=== PATIENT | male | born 1940 | race Caucasian/White ===

== ENCOUNTER 2016-04-01 14:21 | Emergency (ER) | payer MEDICARE ==
[2016-04-01 15:05] LABS: #Basophils 0.1 thou/uL (0.0-0.2); #Eosinphils 0.3 thou/uL (0.0-0.7); #Lymphocytes 1.3 thou/uL (1.20-3.40); #Monocytes 0.5 thou/uL (0.11-0.59); #Neutrophils 4.8 thou/uL (1.40-6.50); %Basophils 1.1 % (0.0-1.0); %Eosinophils 4.3 % (0.0-10.0); %Monocytes 7.1 % (0.0-10.0); Hematocrit 51.6 % (42.0-52.0); Mean Platelet Volume 6.5 fL (7.4-10.4); White Blood Cell (WBC) Count 6.9 thou/uL (4.8-10.8)
[2016-04-01] MEDS ORDERED: Diazepam 10 MG/2 ML SYRINGE ONE (15:17)
[2016-04-01 15:18] LABS: ALT (SGPT) 24 U/L (0-55); AST (SGOT) 18 U/L (5-34); Alkaline Phosphatase 90 U/L (40-150); Anion Gap 13 mmol/L (10-20); BUN (Urea Nitrogen) 14 mg/dL (8.4-25.7); Bilirubin, Total 0.5 mg/dL (0.2-1.2); Calc. Creatinine Clearance 0 mL/min (70-130); Calcium 8.8 mg/dL (7.8-10.44); Carbon Dioxide 24 mmol/L (23-31); Chloride 108 mmol/L (98-107); Estimated GFR-MDRD 85; Globulin 2.8 g/dL (2.4-3.5); Lipase 11 U/L (8-78); Protein, Total 6.5 g/dL (5.8-8.1)
[2016-04-01 15:21] LABS: Troponin I Less than 0.010 ng/mL (< 0.028)
--- NOTE | 2016-04-01 16:17 | ERRECORD ---
[facility] EMERGENCY RECORD PAST MEDICAL HISTORY (15:15 KMOR) MEDICAL HISTORY: No past medical history, Flu vaccine not up to date, Tetanus not up to date, Pneumococcal vaccine not up to date. MALE SURGICAL HISTORY: Surgical history of cholecystectomy. PSYCHIATRIC HISTORY: No previous psychiatric history. SOCIAL HISTORY: Patient denies alcohol use, Patient currently uses tobacco. KNOWN ALLERGIES No Known Drug Allergies CURRENT MEDICATIONS (14:53 KMOR) None VITAL SIGNS VITAL SIGNS: BP: 153/90, Pulse: 67, Resp: 17, Temp: 97.9 (Oral), Pain: 0, O2 sat: 94 on Room Air, Time: 04/01/2016 14:54. (14:54 KMOR) BP: 147/69, Pulse: 60, Resp: 14, Pain: 0, O2 sat: 94 on Room Air, Time: 04/01/2016 15:41. (15:41 KMOR) EKG INTERPRETATION (15:44 MBRI) 12 LEAD EKG INTERPRETATION: 12 lead EKG interpreted by Emergency Department Physician at time of study, 12 lead EKG shows normal sinus rhythm, Rate (beats per minute): 66, with no ectopics, Conduction with, first degree AV block, ST segments normal, T waves normal, [place], left, Other findings include:, age undetermined ant infarct. RADIOLOGYINTERPRETATION (15:19 MBRI) HEAD: Head CT negative, without contrast, no bleed, no mass, no acute ischemic stroke, no acute changes. PARTNER: Preliminary review of CT scans by, Radiologist. MEDICATION ADMINISTRATION SUMMARY Drug Name: *Valium injection, Dose Ordered: 5 mg, Route: IV Push, Status: Given, Time: 15:19 04/01/2016, Drug Name: *sodium chloride 0.9 % intravenous, Dose Ordered: 1 L, Route: IV Fluid Infusion, Status: Given, Time: 15:16 04/01/2016, *Additional information available in notes, Detailed record available in Medication Service section. DOCTOR NOTES RE-EVALUATION: Routine re-evaluation, after administration of, The patient's condition has improved, symptoms have resolved after treatments. (15:52 MBRI) TEXT: Patient has been thoroughly evaluated and monitored. The patients CT Head was negative and the patients symptoms are not &a-1R&a+25V*p+0X*m3725I*c202B*c15G*c2P*p-0X&a-25V&a+1R Name: Cristobal Ospina : 1940 M75 MedRec: [id number] AcctNum: [id number] Prepared: FriApr 01, 2016 16:15 by Interface Page 1 of 2 pMD [facility] EMERGENCY RECORD consistent with CVA, new-onset TIA, or SAH at this time. Patient has a stable neurological exam and monitoring here shows no changes. Neg NIHSS at 0, nml HINTS exam and gait stable. I will discharge home with follow-up and medications for BPV. Explanation and discussion of findings and plan for follow-up have been discussed with the patient and family and questions answered. The patient was instructed to return to the ED if a change in status occurs prior to PCP follow-up. CP does not present any cardiac features and his Left chest is very ttp along with the left lower chest and rib cage area. The patient has follow-up sched for tomorrow for this process already in place. (15:50 MBRI) PROBLEM LIST No recorded problems DIAGNOSIS (15:54 MBRI) FINAL: PRIMARY: OTHER PERIPHERAL VERTIGO UNS EAR, ADDITIONAL: chest wall pain. PRESCRIPTION (15:55 MBRI) Valium oral: TABLET : 5 mg : ORAL : Quantity: 1 Unit: tab(s) Route: ORAL Schedule: every 8 hours PRN Dispense: 10 May substitute. Refills: No Refills . NOTES: No refills. meclizine oral: CAPSULE : 25 mg : ORAL : Quantity: 1 Unit: tab(s) Route: ORAL Schedule: every 6 hours PRN Dispense: 20 Unit: tab(s) May substitute. Refills: No Refills . NOTES: No refills. DISPOSITION PATIENT: Disposition Type: Discharge, Disposition: *Discharge Home, Condition: Improved. (15:54 MBRI) Patient left the department. (16:11 LGIB) Zavala: ARIANAOR=STEVIE Puente, Marcie LGIB=STEVIE Sweeney, Paty MBRI=DO Lemus Matthew &rut-1R&a+25V*p+0X*r5366C*c202B*c15G*c2P*p-0X&a-25V&a+1R Name: Cristobal Ospina : 1940 M75 MedRec: [id number] AcctNum: [id number] Prepared: FriApr 01, 2016 16:15 by Interface Page 2 of 2 pMD MTDD
--- NOTE | 2016-04-01 16:23 | PICIS ---
[facility] EMERGENCY RECORD TRIAGE (14:53 KMOR) TRIAGE NOTES: CP AND DIZZINESS STARTED 1 HOURS COMMERCIAL LOAN COORDINATOR. (14:53 KMOR) PATIENT: NAME: Cristobal Ospina, AGE: 75, GENDER: male, : Sun 1940, TIME OF GREET: FriApr 01, 2016 14:52, PREFERRED LANGUAGE: Ukrainian, ETHNICITY: Not or , ECODE BILLING MAP: [facility], SSN: [id number], Zip Code: [address], KG WEIGHT: 95.71, PHONE: , , , PERSON ID: [id number], PAYMENT: X Medicare, PCP: SAMEER. (14:53 KMOR) COMPLAINT: HIGH RISK COMPLAINT: CHEST PAIN. (14:53 KMOR) ADMISSION: URGENCY: 2 Emergent, ADMISSION SOURCE: Home, TRANSPORT: CAR, BED: ER -04. (14:53 KMOR) ASSESSMENT: Assessment: A&O X4. RR EVEN AND UNLABORED., Symptoms began 1 hour ago. (15:15 KMOR) PAIN: No complaint of pain. (15:15 KMOR) SIRS SCORING: Heart Rate 55-109 (0), Temp range 96.8-101.1 (0), respiratory rate 12-24 (0), Mental Status altered: no (0), Infection or Suspected Infection: No. (15:15 KMOR) TRIAGE SCREENING: Patient denies suicidal ideation, Patient denies presence of domestic violence. (15:15 KMOR) PROVIDERS: TRIAGE NURSE: Marcie Puente RN. (14:53 KMOR) VITAL SIGNS: BP 153/90, Pulse 67, Resp 17, Temp 97.9, (Oral), Pain 0, O2 Sat 94, on Room Air, Time 04/01/2016 14:54. (14:54 KMOR) KNOWN ALLERGIES No Known Drug Allergies CURRENT MEDICATIONS (14:53 KMOR) None VITAL SIGNS VITAL SIGNS: BP: 153/90, Pulse: 67, Resp: 17, Temp: 97.9 (Oral), Pain: 0, O2 sat: 94 on Room Air, Time: 04/01/2016 14:54. (14:54 KMOR) BP: 147/69, Pulse: 60, Resp: 14, Pain: 0, O2 sat: 94 on Room Air, Time: 04/01/2016 15:41. (15:41 KMOR) NURSING PROCEDURE: PIG FURNACE OPERATOR (14:53 KMOR) PATIENT IDENTIFIER: Patient actively involved in identification process, Patient's identity verified by patient stating name, Patient's identity verified by patient stating date. PIG FURNACE OPERATOR: Cardiac monitoring indicated for complaint of chest pain, Patient placed on it programmer analyst, Heart rate: 67, Patient placed on non-invasive blood pressure monitor, with disposable blood pressure cuff applied, Patient placed on continuous pulse oximetry, Adult/pediatric oxisensor applied, Oxygen saturation 100%. NOTES: Patient tolerated procedure well. NURSING PROCEDURE: EKG CHART (14:53 KMOR) &a-1R&a+25V*p+0X*z0307K*c202B*c15G*c2P*p-0X&a-25V&a+1R Name: Cristobal Ospina : 1940 M75 MedRec: [id number] AcctNum: [id number] Prepared: FriApr 01, 2016 16:21 by Interface Page 1 of 7 D [facility] EMERGENCY RECORD PATIENT IDENTIFIER: Patient actively involved in identification process, Patient's identity verified by patient stating name, Patient's identity verified by patient stating date. EKG: EKG indicated for complaint of chest pain, 12 lead EKG performed on the left chest, done by STEVIE Jack, first EKG, Notes: completed at 1422. FOLLOW-UP: After procedure, EKG for interpretation given to Dr. Lemus. NOTES: Patient tolerated procedure well. NURSING PROCEDURE: IV (15:02 KMOR) PATIENT IDENITIFIER: Patient actively involved in identification process, Patient's identity verified by patient stating name, Patient's identity verified by patient stating date. IV SITE 1: IV therapy indicated for hydration, IV therapy indicated for medication administration, IV established, to the right antecubital, using an 18 gauge catheter, in one attempt, Saline lock established, Flushed with normal saline (mls): 10cc, Labs drawn at time of placement, labeled in the presence of the patient and sent to lab. FOLLOW-UP SITE 1: After procedure, 2x3 ensure dressing applied, After procedure, no drainage at IV site, After procedure, no swelling at IV site, After procedure, no redness at IV site. NOTES: Patient tolerated procedure well. NURSING PROCEDURE: NURSE NOTES NURSES NOTES: Notes: Patient brought back to room from pov via wheelchair, pt EKG completed at 1422 on arrival to room and Dr. Lemus to bedside. Time reflected in carting due to delay in computer. (15:04 KMOR) Notes: Dr. Lemus in to review results with patient and . (15:48 KMOR) ORDER DETAILS Order Name: PIG FURNACE OPERATOR ED, Status: Done, Time: 15:02 04/01/2016, User: CELESTINE, - Ordered for: DO Lemus Matthew, - Entered by: STEVIE Puente Krista [facility] Apr 01, 2016 14:56, - Quantity: 1, Order Name: Cardiac Profile w/CKMB & Troponin - I, Status: Active, Time: 14:56 04/01/2016, User: CELESTINE, - Ordered for: DO Lemus Matthew, - Entered by: STEVIE Puente Krista [facility] Apr 01, 2016 14:56, - Quantity: 1, Order Name: CBC with Differential, Status: Active, Time: 14:56 04/01/2016, User: CELESTINE, - Ordered for: DO Lemus Matthew, - Entered by: STEVIE Puente Krista [facility] Apr 01, 2016 14:56, - Quantity: 1, &a-1R&a+25V*p+0X*w0800Y*c202B*c15G*c2P*p-0X&a-25V&a+1R Name: Cristobal Ospina : 1940 M75 MedRec: [id number] AcctNum: [id number] Prepared: FriApr 01, 2016 16:21 by Interface Page 2 of 7 D [facility] EMERGENCY RECORD Order Name: Comprehensive Metabolic Panel, Status: Active, Time: 14:56 04/01/2016, User: CELESTINE, - Ordered for: DO Lemus Matthew, - Entered by: STEVIE Puente Krista [facility] Apr 01, 2016 14:56, - Quantity: 1, Order Name: CT Brain WO Con, Status: Active, Time: 00:00 04/01/2016, User: MARIA DEL CARMEN, - Ordered for: DO Lemus Matthew, - Entered by: DO Lemus Matthew - [facility] Apr 01, 2016, - Quantity: 1, Order Name: EKG 12 Lead in Emergency Room, Status: Active, Time: 14:56 04/01/2016, User: CELESTINE, - Ordered for: DO Lemus Matthew, - Entered by: STEVIE Puente, [facility] Apr 01, 2016 14:56, - Quantity: 1, Order Name: ERRT Pulse Oximeter ER, Status: Active, Time: 14:56 04/01/2016, User: CELESTINE, - Ordered for: DO Lemus Matthew, - Entered by: STEVIE Puente, [facility] Apr 01, 2016 14:56, - Quantity: 1, Order Name: Lipase, Status: Active, Time: 14:56 04/01/2016, User: CELESTINE, - Ordered for: DO Lemus Matthew, - Entered by: STEVIE Puente, [facility] Apr 01, 2016 14:56, - Quantity: 1, Order Name: SALINE LOCK, Status: Done, Time: 15:02 04/01/2016, User: CELESTINE, - Ordered for: DO Lemus Matthew, - Entered by: STEVIE Puente, [facility] Apr 01, 2016 14:56, - Quantity: 1, Order Name: XR Chest 1 View Portable, Status: Active, Time: 00:00 04/01/2016, User: MARIA DEL CARMEN, - Ordered for: DO Lemus Matthew, - Entered by: DO Lemus Matthew - [facility] Apr 01, 2016, - Quantity: 1. MEDICATION ADMINISTRATION SUMMARY Drug Name: *Valium injection, Dose Ordered: 5 mg, Route: IV Push, Status: Given, Time: 15:19 04/01/2016, Drug Name: *sodium chloride 0.9 % intravenous, Dose Ordered: 1 L, Route: IV Fluid Infusion, Status: Given, Time: 15:16 04/01/2016, *Additional information available in notes, Detailed record available in Medication Service section. MEDICATION SERVICE sodium chloride 0.9 % intravenous: Order: sodium chloride 0.9 % intravenous (0.9 % sodium chloride) - Dose: 1 L : IV Fluid Infusion Schedule: Now &a-1R&a+25V*p+0X*z3811H*c202B*c15G*c2P*p-0X&a-25V&a+1R Name: Cristobal Ospina : 1940 M75 MedRec: [id number] AcctNum: [id number] Prepared: FriApr 01, 2016 16:21 by Interface Page 3 of 7 pMD [facility] EMERGENCY RECORD Notes: (Bolus) Read back and verified Ordered by: Murray Lemus DO Entered by: Marcie Puente RN FriApr 01, 2016 14:58 , Acknowledged by: Marcie Puente RN FriApr 01, 2016 15:05 Documented as given by: Marcie Puente RN FriApr 01, 2016 15:16 Patient, Medication, Dose, Route and Time verified prior to administration. Amount given: 1L, IV SITE #1 IV fluids established for hydration, IV SITE #1 into right antecubital, IV SITE #1 1st bag hung, amount 1 Liter hung, via primary tubing, Connections checked prior to administration, Line traced prior to administration, Catheter placement confirmed via flush prior to administration, IV site without signs or symptoms of infiltration during medication administration, No swelling during administration, No drainage during administration, IV flushed after administration, Correct patient, time, route, dose and medication confirmed prior to administration, Patient advised of actions and side-effects prior to administration, Allergies confirmed and medications reviewed prior to administration, Patient in position of comfort, Side rails up, Cart in lowest position, Family at bedside. Valium injection: Order: Valium injection (diazepam) - Dose: 5 mg : IV Push Schedule: Bolus Notes: Read back and verified Ordered by: Murray Lemus DO Entered by: Marcie Puente RN FriApr 01, 2016 14:59 , Acknowledged by: Marcie Puente RN FriApr 01, 2016 15:05 Documented as given by: Marcie Puente RN FriApr 01, 2016 15:19 Patient, Medication, Dose, Route and Time verified prior to administration. Amount given: 5mg, IV SITE #1 IVP, initial medication, Slowly, Awake and alert- acceptable, Catheter placement confirmed via flush prior to administration, IV site without signs or symptoms of infiltration during medication administration, No swelling during administration, No drainage during administration, IV flushed after administration, Correct patient, time, route, dose and medication confirmed prior to administration, Patient advised of actions and side-effects prior to administration, Allergies confirmed and medications reviewed prior to administration, Patient in position of comfort, Side rails up, Cart in lowest position, Family at bedside. PAST MEDICAL HISTORY (15:15 KMOR) MEDICAL HISTORY: No past medical history, Flu vaccine not up to date, Tetanus not up to date, Pneumococcal vaccine not up to date. MALE SURGICAL HISTORY: Surgical history of cholecystectomy. PSYCHIATRIC HISTORY: No previous psychiatric history. SOCIAL HISTORY: Patient denies alcohol use, Patient &a-1R&a+25V*p+0X*m1437P*c202B*c15G*c2P*p-0X&a-25V&a+1R Name: Cristobal Ospina : 1940 M75 MedRec: [id number] AcctNum: [id number] Prepared: FriApr 01, 2016 16:21 by Interface Page 4 of 7 D [facility] EMERGENCY RECORD currently uses tobacco. LAB INTERPRETATION (15:48 MBRI) INTERPRETATION: I reviewed the lab results. EVENTS TRANSFER: Triage to Emergency Emergency Room -04. (FriApr 01, 2016 14:53 KMOR) Removed from Emergency Emergency Room -04. (16:11 LGIB) RADIOLOGYINTERPRETATION (15:19 MBRI) HEAD: Head CT negative, without contrast, no bleed, no mass, no acute ischemic stroke, no acute changes. PROVISIONING ANALYST: Preliminary review of CT scans by, Radiologist. EKG INTERPRETATION (15:44 MBRI) 12 LEAD EKG INTERPRETATION: 12 lead EKG interpreted by Emergency Department Physician at time of study, 12 lead EKG shows normal sinus rhythm, Rate (beats per minute): 66, with no ectopics, Conduction with, first degree AV block, ST segments normal, T waves normal, [place], left, Other findings include:, age undetermined ant infarct. O2SAT INTERPRETATION (15:18 MBRI) O2SAT: Oxygen saturation interpretation: Normal. DOCTOR NOTES RE-EVALUATION: Routine re-evaluation, after administration of, The patient's condition has improved, symptoms have resolved after treatments. (15:52 MBRI) TEXT: Patient has been thoroughly evaluated and monitored. The patients CT Head was negative and the patients symptoms are not consistent with CVA, new-onset TIA, or SAH at this time. Patient has a stable neurological exam and monitoring here shows no changes. Neg NIHSS at 0, nml HINTS exam and gait stable. I will discharge home with follow-up and medications for BPV. Explanation and discussion of findings and plan for follow-up have been discussed with the patient and family and questions answered. The patient was instructed to return to the ED if a change in status occurs prior to PCP follow-up. CP does not present any cardiac features and his Left chest is very ttp along with the left lower chest and rib cage area. The patient has follow-up sched for tomorrow for this process already in place. (15:50 MBRI) PROBLEM LIST No recorded problems DIAGNOSIS (15:54 MBRI) FINAL: PRIMARY: OTHER PERIPHERAL VERTIGO UNS EAR, ADDITIONAL: chest wall pain. &a-1R&a+25V*p+0X*t4760M*c202B*c15G*c2P*p-0X&a-25V&a+1R Name: Cristobal Ospina : 1940 M75 MedRec: [id number] AcctNum: [id number] Prepared: FriApr 01, 2016 16:21 by Interface Page 5 of 7 pMD [facility] EMERGENCY RECORD DISPOSITION PATIENT: Disposition Type: Discharge, Disposition: *Discharge Home, Condition: Improved. (15:54 MBRI) Patient left the department. (16:11 LGIB) INSTRUCTION (15:56 MBRI) DISCHARGE: BENIGN POSITIONAL VERTIGO, CHEST PAIN NONCARDIAC. FOLLOWUP: MD Sameer, Ronn, [facility], [address] [place], [place] [id number], , Follow up with Primary Care Physician in 5 days. SPECIAL: Please return for any further issues or concerns, we would be happy to see you. We hope you feel better soon. Follow-up with your PCP Tylenol for Pain. PRESCRIPTION (15:55 MBRI) Valium oral: TABLET : 5 mg : ORAL : Quantity: 1 Unit: tab(s) Route: ORAL Schedule: every 8 hours PRN Dispense: 10 May substitute. Refills: No Refills . NOTES: No refills. meclizine oral: CAPSULE : 25 mg : ORAL : Quantity: 1 Unit: tab(s) Route: ORAL Schedule: every 6 hours PRN Dispense: 20 Unit: tab(s) May substitute. Refills: No Refills . NOTES: No refills. RESULTS LABORATORY: Lipase Collection DT: FriApr 01, 2016 15:03, Lipase 11 U/L, Range (8-78). (15:23 MBRI) Comprehensive Metabolic Panel Collection DT: FriApr 01, 2016 15:03, Sodium 141 mmol/L, Range (136-145), Potassium 4.2 mmol/L, Range (3.5-5.1), *Chloride 108 - H mmol/L, Range (98-107), Carbon Dioxide 24 mmol/L, Range (23-31), Anion Gap 13 mmol/L, Range (10-20), BUN (Urea Nitrogen) 14 mg/dL, Range (8.4-25.7), Creatinine 0.87 mg/dL, Range (0.7-1.3), Estimated GFR-MDRD 85 , Reference Range for Estimated GFR: Greater than 90, mL/min/1.73 m2 NOTE: The MDRD equation has not been validated for use, with the elderly (over 70 years of age), women, patients with, serious comorbid condition or persons with extremes of body size, muscle, mass, or nutritional status. , *Glucose 140 - H mg/dL, Range (83-110), Calcium 8.8 mg/dL, Range (7.8-10.44), Bilirubin, Total 0.5 mg/dL, Range (0.2-1.2), &a-1R&a+25V*p+0X*c4951W*c202B*c15G*c2P*p-0X&a-25V&a+1R Name: Cristobal Ospina : 1940 M75 MedRec: [id number] AcctNum: [id number] Prepared: FriApr 01, 2016 16:21 by Interface Page 6 of 7 pMD [facility] EMERGENCY RECORD Protein, Total 6.5 g/dL, Range (5.8-8.1), NOTE: Plasma values are generally 0.3 to 0.5 g/dL higher than serum values, due to the presence of fibrinogen. , Albumin 3.7 g/dL, Range (3.4-4.8), Globulin 2.8 g/dL, Range (2.4-3.5), Alb/Glob Ratio 1.3 g/dL, Range (1.2-2.2), Alkaline Phosphatase 90 U/L, Range (40-150), AST (SGOT) 18 U/L, Range (5-34), ALT (SGPT) 24 U/L, Range (0-55). (15:23 MBRI) CBC with Differential Collection DT: FriApr 01, 2016 15:03, White Blood Cell (WBC) Count 6.9 thou/uL, Range (4.8-10.8), Red Blood Cell (RBC) Count 5.20 mill/uL, Range (4.70-6.10), Hemoglobin 16.4 g/dL, Range (14.0-18.0), Hematocrit 51.6 %, Range (42.0-52.0), *Mean Corpuscular Volume 99.2 - H fl, Range (80.0-94.0), *Mean Corpuscular Hemoglobin 31.4 - H pg, Range (27.0-31.0), *Mean Corpuscular HGB CONC 31.7 - L g/dL, Range (32.0-36.0), RBC Distribution Width 12.2 %, Range (11.5-14.5), Platelet Count 152 thou/uL, Range (130-400), *Mean Platelet Volume 6.5 - L fL, Range (7.4-10.4), %Neutrophils 68.8 %, Range (42.0-75.0), *%Lymphocytes 18.7 - L %, Range (21.0-51.0), %Monocytes 7.1 %, Range (0.0-10.0), %Eosinophils 4.3 %, Range (0.0-10.0), *%Basophils 1.1 - H %, Range (0.0-1.0), #Neutrophils 4.8 thou/uL, Range (1.40-6.50), #Lymphocytes 1.3 thou/uL, Range (1.20-3.40), #Monocytes 0.5 thou/uL, Range (0.11-0.59), #Eosinphils 0.3 thou/uL, Range (0.0-0.7), #Basophils 0.1 thou/uL, Range (0.0-0.2). (15:23 MBRI) Cardiac Profile w/CKMB & TropI Collection DT: FriApr 01, 2016 15:03, CKMB 1.8 ng/mL, Range (0-6.6), Troponin I Less than 0.010 ng/mL, Range (< 0.028), Reference Range , 0.00 - 0.028 ng/mL Negative 0.029 - 0.29 ng/mL , Indeterminate Greater or Equal to 0.3 ng/mL Strongly suggests [place] , . (15:45 MBRI) Zavala: KMOR=STEVIE Puente, Marcie LGIB=STEVIE Sweeney, Paty MBRI=DO Lemus Matthew &a-1R&a+25V*p+0X*x9204P*c202B*c15G*c2P*p-0X&a-25V&a+1R Name: Cristobal Ospina Rafaela : 1940 M75 MedRec: [id number] AcctNum: [id number] Prepared: FriApr 01, 2016 16:21 by Interface Page 7 of 7 pMD MTDD
--- NOTE | 2016-04-01 16:28 | CT ---
CT OF THE BRAIN WITHOUT CONTRAST: Date: 04-01-16 Comparison: A noncontrast CT was done emergently for evaluation of headache and dizziness. FINDINGS: Diffuse atrophy is present with mild compensatory dilatation of ventricles. There is no ventricular shift. No intracranial bleeding, mass, or edema was found. There is no definite acute stroke. M inimal low density area near the posterior limb of the left internal capsule could be a small lacuna r infarct or artifact, but it would not relate to the current symptoms. The visible paranasal sinus es are clear, as are the mastoid air cells. IMPRESSION: Atrophy but no acute findings. POS: HOME
--- NOTE | 2016-04-01 16:30 | RAD ---
PORTABLE CHEST Date: 04-01-16 FINDINGS: An AP portable film at 1500 hours shows mild cardiomegaly but no congestive findings. No effusions, infiltrates, or other parenchymal changes were seen. The mediastinum appears unremarkable. IMPRESSION: Mild cardiomegaly but no acute findings otherwise. POS: HOME
== END 2016-04-01 16:05 | disposition home or self-care (01) ==
LOC: BURERS 14:21
DX: H81.399 Other peripheral vertigo, unspecified ear (principal); R07.89 Other chest pain; F17.200 Nicotine dependence, unspecified, uncomplicated
CPT/HCPCS: 70450; 71010; 80053; 82553; 83690; 84484; 85025; 93005; 94760; 96361; 96374; J3360

== ENCOUNTER 2017-05-09 10:05 | Outpatient (CLI) | payer MEDICARE ==
--- NOTE | 2017-05-09 12:49 | RAD ---
LEFT KNEE FOUR VIEWS: 05/09/2017 FINDINGS: No fracture or joint effusion is seen. The joint space is normal in width. Some very tiny osteophyt es are present, less than one often sees for age. IMPRESSION: No acute finding. POS: ONOFRE
== END 2017-05-09 10:06 | disposition home or self-care (01) ==
LOC: BURRAD 10:05
PROVIDERS: ATTEND Family Medicine
DX: M25.562 Pain in left knee (principal)

== ENCOUNTER 2023-10-03 00:33 | Observation (INO) | payer MEDICARE ==
[2023-10-03] MEDS ORDERED: Ondansetron ODT 4 MG TAB SL PRN (11:45)
[2023-10-03] MEDS ORDERED: Acetaminophen 325 MG TAB PO PRN (11:45)
[2023-10-03] MEDS ORDERED: Ondansetron PF 4 MG/2 ML Vial IVP PRN (11:45)
[2023-10-03] MEDS: Lidocaine 4% Patch TD SCH (12:49)
[2023-10-03] MEDS: Morphine 2 MG/ML VIAL SLOW IVP PRN ×2 (12:54→20:30)
[2023-10-03] MEDS: Apixaban 5 MG TAB PO SCH ×2 (12:57→20:30)
[2023-10-03 13:28] LABS: #Basophils 0.1 thou/uL (0.0-0.2); #Eosinphils 0.2 thou/uL (0.0-0.7); #Lymphocytes 1.7 thou/uL (1.20-3.40); #Monocytes 0.8 thou/uL (0.11-0.59); #Neutrophils 7.3 thou/uL (1.40-6.50); %Basophils 0.9 % (0.0-1.0); %Lymphocytes 16.8 % (21.0-51.0); %Monocytes 8.2 % (0.0-10.0); %Neutrophils 72.2 % (42.0-75.0); Hematocrit 49.5 % (42.0-52.0); Hemoglobin 16.4 g/dL (14.0-18.0); Mean Corpuscular Hemoglobin 32.3 pg (27.0-31.0); Mean Corpuscular Volume 97.9 fl (78.0-98.0); Mean Platelet Volume 6.5 fL (7.4-10.4); Platelet Count 152 10x3/uL (130-400); RBC Distribution Width 12.4 % (11.5-14.5); Red Blood Cell (RBC) Count 5.06 mill/uL (4.70-6.10); White Blood Cell (WBC) Count 10.2 10x3/uL (4.8-10.8)
[2023-10-03 13:29] LABS: Anion Gap 14 mmol/L (10-20); BUN (Urea Nitrogen) 23 mg/dL (8.4-25.7); Calc. Creatinine Clearance 100 mL/min (70-130); Calcium 9.2 mg/dL (7.8-10.44); Carbon Dioxide 25 mmol/L (23-31); Chloride 105 mmol/L (98-107); Estimated GFR 80; Glucose 93 mg/dL (83-110); Sodium 140 mmol/L (136-145)
[2023-10-03 13:37] VITALS: BMI 34.5
[2023-10-03] MEDS: Acetaminophen 325 MG TAB ONE (16:17)
[2023-10-03] MEDS: Ketorolac Tromethamine 30 MG (1 mL) VIAL ONE (16:17)
[2023-10-03] MEDS: HYDROcodone/Acetaminophen 5/325 mg Tablet ONE ×2 (16:17→16:18)
[2023-10-03] MEDS: Acetaminophen 500 MG TAB PO SCH (16:53)
[2023-10-03] MEDS: Transdermal Patch Removal TOP SCH (20:30)
[2023-10-04] MEDS: HYDROcodone/Acetaminophen 10/325 mg Tablet PO PRN (00:30)
[2023-10-04] MEDS: Ondansetron ODT 4 MG TAB SL PRN (03:38)
[2023-10-04] MEDS: Pantoprazole DR 40 MG TAB PO SCH (08:35)
[2023-10-04] MEDS ORDERED: Lidocaine 4% Topical Sol 50 ML BOT TOP PRN (09:35)
[2023-10-04] MEDS ORDERED: Milk Of Magnesia 30 ML UDCUP PO PRN (09:37)
[2023-10-04] MEDS: Polyethylene Glycol 3350 17 GM Packet PO PRN (12:47)
[2023-10-04] MEDS: Lidocaine 4% Patch TD SCH (20:08)
[2023-10-05] MEDS: Transdermal Patch Removal TOP SCH (08:00)
[2023-10-05] MEDS: Docusate Sodium 100 MG/10 ML UDCUP PO SCH (10:29)
[2023-10-05 17:26] VITALS: BP 149/81; TEMP 98.5
== END 2023-10-05 18:29 ==
LOC: BURERS 00:33 → BURMED 02:40 → UNDOADMOB 02:40 → BURMED 10:36 → INTOOBSV 10:36 → BURMED 10:36
PROVIDERS: ADMIT Family Medicine; ATTEND Family Medicine
DX: M54.40 Lumbago with sciatica, unspecified side (principal); R53.1 Weakness; R26.89 Other abnormalities of gait and mobility; Z91.81 History of falling; Z79.01 Long term (current) use of anticoagulants; Z98.890 Other specified postprocedural states; Z90.49 Acquired absence of other specified parts of digestive tract; Z86.718 Personal history of other venous thrombosis and embolism; F17.200 Nicotine dependence, unspecified, uncomplicated
CPT/HCPCS: 80048; 85025; 96372; 96374; 96376; 99284; G0378; J1885; J2272; Q0162